=== PATIENT | female | born 1985 | race Caucasian/White ===

== ENCOUNTER 2024-09-19 09:46 | Emergency (ER) | payer MEDICARE ==
[~2024-09-19] VITALS: Ht 160 cm; Wt 84.1 kg
[2024-09-19 09:53] VITALS: TEMP 98.1
[2024-09-19] MEDS ORDERED: LITH300C3 PO (09:53)
[2024-09-19] MEDS ORDERED: PROP80CA41 PO (09:53)
[2024-09-19] MEDS ORDERED: TRAZ-252 PO (09:53)
[2024-09-19] MEDS ORDERED: GABA-1201 PO (09:53)
[2024-09-19] MEDS: KETOROLAC TROMETHAMINE 30 MG/ML VIAL IM ONE (11:07)
[2024-09-19] MEDS: ACETAMINOPHEN 500 MG TABLET PO ONE (11:07)
[2024-09-19] MEDS: LIDOCAINE 5% TRANSDERMAL PATCH TD ONE (11:08)
[2024-09-19 12:00] VITALS: BP 132/89; PULSE 58; RESP 18; O2SAT 98
[2024-09-19] MEDS ORDERED: HYDR-4072 PO (12:34)
== END 2024-09-19 13:02 | disposition home or self-care (01) ==
LOC: EMS 09:51
DX: M23.91 Unspecified internal derangement of right knee (principal); F31.9 Bipolar disorder, unspecified; Z88.0 Allergy status to penicillin; Z90.89 Acquired absence of other organs; Z79.899 Other long term (current) drug therapy
CPT/HCPCS: 99283; 29505; 73562; 96372; J1885